=== PATIENT | male | born 1975 | race Caucasian/White ===

== ENCOUNTER → 2017-05-13 | Outpatient (REF) ==
--- NOTE | 2017-05-13 12:17 | REP ---
LUMBOSACRAL SPINE: AP and lateral views of the lumbosacral spine performed. There is no compression or malalignment. There is normal lumbar lordosis with no spondylolysis or spondylolisthesis. Disc spaces are well preserved. There is sclerosis at the posterior facet joints of L5-S1. The posterior elements are intact. IMPRESSION: Sclerosis at the facets of L5-S1. Otherwise unremarkable exam. Signed by Jf Rodríguez MD 05/13/2017 01:43 P
== END ==
LOC: M SMT 11:29
PROVIDERS: ATTEND Internal Medicine
DX: Z02.9 Encounter for administrative examinations, unspecified (principal)

== ENCOUNTER 2023-04-27 18:59 | Emergency (ER) | payer SELFPAY ==
[2023-04-27] MEDS ORDERED: ADV250INH INH (19:16)
[2023-04-27] MEDS ORDERED: HYDR-643 PO (19:16)
[2023-04-27] MEDS ORDERED: EFFE37.5 PO (19:16)
[2023-04-27] MEDS ORDERED: ALBU6.7H6 INH (19:16)
[2023-04-27] MEDS ORDERED: LORA1TAB23 PO (19:16)
[2023-04-27 19:50] LABS: BASO # 0.1 10^3/uL (0.0-0.2); BASO % 0.6 % (0.0-1.0); EOS # 0.2 10^3/uL (0.0-0.5); EOS % 2.3 % (0.0-3.0); HEMATOCRIT 44.6 % (42.0-52.0); HEMOGLOBIN 14.7 g/dl (13.5-17.5); LYMPH # 1.9 10^3/uL (1.5-5.0); LYMPH % 21.2 % (24.0-44.0); MEAN CORPUSCULAR HEMOGLOBIN 31.1 pg (27.0-33.0); MEAN CORPUSCULAR VOLUME 94.5 fl (80.0-96.0); MONO # 0.6 10^3/uL (0.0-0.8); MONO % 6.5 % (2.0-8.0); NEUTROPHILS # 6.2 10^3/uL (1.5-8.5); NEUTROPHILS % 69.3 % (36.0-66.0); PLATELET COUNT, AUTOMATED 304 10^3/uL (150-450); RED BLOOD COUNT 4.72 10^6/uL (4.30-6.10)
[2023-04-27 20:01] LABS: INR 0.95; PROTHROMBIN TIME 12.4 SECONDS (12.5-14.5)
[2023-04-27 20:02] LABS: PARTIAL THROMBOPLASTIN TIME 24.8 SECONDS (24.8-34.2)
[2023-04-27 20:09] LABS: ALBUMIN 4.1 G/DL (3.2-5.2); ALKALINE PHOSPHATASE 55 U/L (46-116); ALT/SGPT 17 U/L (7.0-40); AST/SGOT 17 U/L (<34); BILIRUBIN,DIRECT < 0.1 MG/DL (<0.4); BILIRUBIN,TOTAL 0.2 MG/DL (0.3-1.2); BLOOD UREA NITROGEN 15 MG/DL (9-23); CALCIUM LEVEL 9.1 MG/DL (8.5-10.1); CARBON DIOXIDE LEVEL 26 MMOL/L (20-31); CHLORIDE LEVEL 104 MMOL/L (98-107); CREATININE FOR GFR 0.92 MG/DL (0.70-1.30); GLOMERULAR FILTRATION RATE > 60.0 (>60); GLUCOSE, FASTING 90 MG/DL (60-100); POTASSIUM SERUM 4.9 MMOL/L (3.5-5.1); SODIUM LEVEL 138 MMOL/L (136-145); TOTAL PROTEIN 7.6 G/DL (5.7-8.2)
[2023-04-27] MEDS ORDERED: ISOVUE-370 76% 100ML VIAL As Ordered ONE (20:26)
[2023-04-27] MEDS ORDERED: ANUS25SU PR (21:41)
[2023-04-27 21:59] VITALS: BP 118/72; TEMP 98.1; O2SAT 99
== END 2023-04-27 21:57 | disposition home or self-care (01) ==
LOC: M ED 18:59
DX: K92.1 Melena (principal); J45.909 Unspecified asthma, uncomplicated; Z88.8 Allergy status to other drugs, medicaments and biological substances; Z91.048 Other nonmedicinal substance allergy status; Z79.52 Long term (current) use of systemic steroids; Z79.899 Other long term (current) drug therapy
CPT/HCPCS: 36415; 74177; 80048; 80076; 85025; 85610; 85730; 86850; 86900; 86901; 99284; Q9967